=== PATIENT | female | born 1960 | race African-American/Black ===

== ENCOUNTER 2017-01-30 17:34 | Emergency (ER) | payer OTHER ==
[~2017-01-30] VITALS: Ht 149.9 cm; Wt 65.8 kg
[~2017-01-30 17:34] MED LIST: ALBUTEROL SULF8.5 GM INH; ATORVASTATIN CA10 MG ORAL; AZITHROMYCIN250 MG ORAL; BACTRIM-DS1 EA ORAL; DIFLUCAN100 MG ORAL; HYDROCHLOROTHIA25 MG ORAL; IBUPROFEN600 MG ORAL; KEFLEX500 MG ORAL; METFORMIN HCL1000 M1 ORAL; NORCO 5-325 TA1 EACH ORAL; PHENAZOPYRIDIN200 MG ORAL; ROBAXIN-750750 MG PO; ROBITUSSIN DM5 ML GT; ZANTAC150 MG ORAL; ZOFRAN ODT4 MG ORAL
[2017-01-30 18:25] VITALS: BP 150/93
--- NOTE | 2017-01-30 18:36 | Emergency Room Report ---
History of Present Illness General Chief Complaint: Medication Refill Source: Patient Present Illness HPI 56 YO female presents to the emergency department requesting medication refill for her losartan for hypotension or and metformin for diabetes. Patient states her next appointment with her physician is not until the 11th of next month and she is now out of her medications. Patient denies headache, nausea, vomiting, abdominal pain. Patient states she does not need medical workup he simply wants a refill of her prescriptions. Denies CP, Palpitations, LOC, AMS, dizziness, Changes in Vision, Sensation, paresthesias, or a sudden severe headache. Allergies: Coded Allergies: IBUPROFEN (Unverified Adverse Reaction, Mild, makes me feel jumpy, 04/14/14) Patient History Past Medical History: see triage record Past Surgical History: none Pertinent Family History: none Last Menstrual Period: N/A Now: No Reviewed Nursing Documentation: PMH: Agreed, PSxH: Agreed Nursing Documentation-PMH Hx Cardiac Problems: No - hyperlipid Hx Hypertension: Yes Hx Pacemaker: No Hx Asthma: No Hx COPD: No Hx Diabetes: Yes Hx Cancer: No Hx Gastrointestinal Problems: No Hx Dialysis: No Hx Neurological Problems: No Hx Cerebrovascular Accident: No Hx Seizures: No Review of Systems All Other Systems: negative except mentioned in HPI Physical Exam Vital Signs Date Time Temp Pulse Resp B/P Pulse Ox O2 Delivery O2 Flow Rate FiO2 01/30/17 17:56 98.6 86 18 150/93 96 Room Air Sp02 EP Interpretation: reviewed, abnormal - Bp elevated General Appearance: no apparent distress, alert, GCS 15, non-toxic Head: normocephalic, atraumatic Eyes: bilateral eye PERRL, bilateral eye normal inspection ENT: hearing grossly normal, normal pharynx, no angioedema, normal voice Neck: full range of motion Respiratory: lungs clear, normal breath sounds, speaking full sentences Cardiovascular #1: regular rate, rhythm, no edema Musculoskeletal: gait/station normal, normal range of motion Neurologic: alert, oriented x3, responsive, motor strength/tone normal, cerebellar normal, normal gait, speech normal Psychiatric: judgement/insight normal, memory normal, mood/affect normal Skin: normal color, no rash, warm/dry, well hydrated Medical Decision Making PA Attestation Dr. Altman is my supervising Physician whom patient management has been discussed with. Diagnostic Impression: Primary Impression: Encounter for medication refill ER Course 56 YO female presents to the emergency department requesting medication refill for her losartan for hypotension or and metformin for diabetes. Patient states her next appointment with her physician is not until the 11th of next month and she is now out of her medications. Patient denies headache, nausea, vomiting, abdominal pain. Patient states she does not need medical workup he simply wants a refill of her prescriptions. Pt. takes Losartan 100mg daily and Metformin 1000mg Daily. Ddx considered but are not limited to: drug seeking, OD, DKA, HONK, HTN urgency Vital signs: are WNL, pt. is afebrile H&PE are most consistent with need for medication refill. ORDERS: none required at this time, the diagnosis is clinical ED INTERVENTIONS: None required at this time. DISCHARGE: At this time pt. is stable for d/c to home. Will provide printed patient care instructions, and any necessary prescriptions. Care plan and follow up instructions have been discussed with the patient prior to discharge. Last Vital Signs Date Time Temp Pulse Resp B/P Pulse Ox O2 Delivery O2 Flow Rate FiO2 01/30/17 18:25 98.6 18 150/93 96 Room Air 01/30/17 17:56 86 Disposition: HOME, SELF-CARE Condition: Stable Scripts Losartan Potassium (LOSARTAN POTASSIUM) 100 Mg Tablet 100 MG ORAL DAILY for 30 Days, #30 TAB Prov: Janina Sevilla 01/30/17 Metformin Hcl* (METFORMIN HCL*) 1,000 Mg Tablet 1000 MG ORAL DAILY for 30 Days, #30 TAB Prov: Janina Sevilla 01/30/17 Patient Instructions: Medicine Refill at the Emergency Department Additional Instructions: Take medications as directed. Follow up with PCP in 3-5 days Return sooner to ED if new symptoms occur, or current symptoms become worse. - Please note that this Emergency Department Report was dictated using [employer] teller technology software, occasionally this can lead to erroneous entry secondary to interpretation by the dictation equipment. Janina Sevilla Jan 30, 2017 18:36
[2017-01-30] MEDS ORDERED: ATORVASTATIN CA10 MG ORAL (18:38)
[2017-01-30] MEDS ORDERED: HYDROCHLOROTHIA25 MG ORAL (18:38)
[2017-01-30] MEDS ORDERED: METFORMIN HCL1000 M1 ORAL (18:38)
[2017-01-30 18:41] VITALS: BP 150/93
[2017-01-30] MEDS ORDERED: LOSARTAN POTAS100 MG ORAL ×2 (18:45→18:46)
[2017-01-30] MEDS ORDERED: METFORMIN HCL500 M5 PO (18:45)
[2017-01-30] MEDS ORDERED: METFORMIN HCL5000 GM MC (18:45)
== END 2017-01-30 18:45 | disposition home or self-care (01) ==
LOC: EMR 18:22
DX: Z76.0 Encounter for issue of repeat prescription (principal); Z88.6 Allergy status to analgesic agent; I10 Essential (primary) hypertension; E11.9 Type 2 diabetes mellitus without complications
CPT/HCPCS: 99284

== ENCOUNTER 2017-04-13 09:46 | Emergency (ER) | payer OTHER ==
[~2017-04-13 09:46] MED LIST changes: +LOSARTAN POTAS100 MG ORAL; +METFORMIN HCL500 M5 PO; +METFORMIN HCL5000 GM MC
--- NOTE | 2017-04-13 21:47 | Emergency Room Report ---
History of Present Illness General Chief Complaint: To Be Triaged Present Illness HPI apparently here for medication refill. Not in W/R when called. Allergies: Coded Allergies: IBUPROFEN (Unverified Adverse Reaction, Mild, makes me feel jumpy, 04/14/14) Patient History Past Medical History: see triage record Nursing Documentation-PMH Hx Cardiac Problems: No - hyperlipid Hx Hypertension: Yes Hx Pacemaker: No Hx Asthma: No Hx COPD: No Hx Diabetes: Yes Hx Cancer: No Hx Gastrointestinal Problems: No Hx Dialysis: No Hx Neurological Problems: No Hx Cerebrovascular Accident: No Hx Seizures: No Medical Decision Making Diagnostic Impression: Primary Impression: LWBSMD ER Course Patient left before triage. Disposition: LEFT W/OUT BEING SEEN Condition: Unknown Referrals: [facility] (PCP) Camilo Rogers M.D. Apr 13, 2017 21:47
== END 2017-04-13 11:00 | disposition left against medical advice (07) ==
LOC: EMR 11:00
DX: Z76.0 Encounter for issue of repeat prescription (principal); Z53.21 Procedure and treatment not carried out due to patient leaving prior to being seen by health care provider; I10 Essential (primary) hypertension; E11.9 Type 2 diabetes mellitus without complications; Z88.6 Allergy status to analgesic agent

== ENCOUNTER 2017-04-15 18:03 | Emergency (ER) | payer OTHER ==
[~2017-04-15] VITALS: Ht 149.9 cm; Wt 65.8 kg
[2017-04-15] MEDS ORDERED: JANUMET 50-1,01 EACH ORAL ×2 (18:14→20:37)
--- NOTE | 2017-04-15 18:56 | Emergency Room Report ---
History of Present Illness General Chief Complaint: Medication Refill Source: Patient Present Illness HPI 57-year-old female, history of diabetes and hypertension, presenting with urinary frequency, dehydration, and medication refill. Patient has diabetes, states that she ran out of her Janumet and Losartan, however does use insulin 15 units at bedtime, and use her insulin last night. Patient states that she has been having increased urination and thirst the entire day. Denies any fever chills chest pain shortness of breath nausea vomiting or abdominal pain Allergies: Coded Allergies: IBUPROFEN (Unverified Adverse Reaction, Mild, makes me feel jumpy, 04/14/14) Patient History Past Medical History: see triage record Past Surgical History: none Pertinent Family History: none Reviewed Nursing Documentation: PMH: Agreed, PSxH: Agreed Nursing Documentation-PMH Hx Cardiac Problems: No - hyperlipid Hx Hypertension: Yes Hx Pacemaker: No Hx Asthma: No Hx COPD: No Hx Diabetes: Yes Hx Cancer: No Hx Gastrointestinal Problems: No Hx Dialysis: No Hx Neurological Problems: No Hx Cerebrovascular Accident: No Hx Seizures: No Review of Systems All Other Systems: negative except mentioned in HPI Physical Exam Vital Signs Date Time Temp Pulse Resp B/P (MAP) Pulse Ox O2 Delivery O2 Flow Rate FiO2 04/15/17 18:08 98.1 98 16 145/89 97 Room Air Sp02 EP Interpretation: reviewed, normal General Appearance: normal inspection, well appearing, no apparent distress, alert, GCS 15, non-toxic Head: normocephalic, atraumatic Eyes: bilateral eye normal inspection, bilateral eye PERRL, bilateral eye EOMI ENT: normal ENT inspection, normal pharynx, normal voice, dry mucus membranes Neck: normal inspection, full range of motion, supple Respiratory: normal inspection, lungs clear, normal breath sounds, no respiratory distress, no retraction, no wheezing, speaking full sentences, chest symmetrical Cardiovascular #1: normal inspection, regular rate, rhythm, no edema, normal capillary refill Cardiovascular #2: 2+ radial (R), 2+ radial (L) Gastrointestinal: normal inspection, non tender, soft, non-distended, no guarding Musculoskeletal: normal inspection, back normal, normal range of motion, non- tender Neurologic: normal inspection, alert, oriented x3, responsive, motor strength/ tone normal, sensory intact, normal gait, speech normal Psychiatric: normal inspection, judgement/insight normal, memory normal Skin: normal inspection, normal color, no rash, warm/dry, well hydrated, normal turgor Medical Decision Making Diagnostic Impression: Primary Impression: Hyperglycemia Additional Impression: Encounter for medication refill ER Course 57 yo female with polyuria, polydipsia, needs medication refill DDX: hyperglycemia r/o DKA dehydration/electrolyte disturbance Plan: Obtain labs, ua, EKG, CXR, IVF ER course: Patient has been monitored during ED stay, HD stable labs reveal only hyperglycemia received fluids last bgm 331 she will take her insulin when she gets home Disposition: Pt stable for DC patient was given 1 week supply of her losartan and janumet, instructed to followup with her primary care Dr. within one week Please note that this Emergency Department Report was dictated using [employer] spooler technology software, occasionally this can lead to erroneous entry secondary to interpretation by the dictation equipment. Laboratory Tests Test 04/15/17 18:46 04/15/17 18:50 Arterial Blood pH 7.396 (7.350-7.450) Arterial Blood Partial Pressure CO2 34.8 mmHg (35.0-45.0) L Arterial Blood Partial Pressure O2 90.8 mmHg (75.0-100.0) Arterial Blood HCO3 20.9 mmol/L (22.0-26.0) L Arterial Blood Oxygen Saturation 97.1 % (92.0-98.0) Arterial Blood Base Excess -3.2 Jose Miguel Test Positive White Blood Count 10.2 K/UL (4.8-10.8) Red Blood Count 4.91 M/UL (4.20-5.40) Hemoglobin 14.7 G/DL (12.0-16.0) Hematocrit 45.4 % (37.0-47.0) Mean Corpuscular Volume 92 FL (80-99) Mean Corpuscular Hemoglobin 30.0 PG (27.0-31.0) Mean Corpuscular Hemoglobin Concent 32.4 G/DL (32.0-36.0) Red Cell Distribution Width 12.6 % (11.6-14.8) Platelet Count 243 K/UL (150-450) Mean Platelet Volume 9.1 FL (6.5-10.1) Neutrophils (%) (Auto) 63.2 % (45.0-75.0) Lymphocytes (%) (Auto) 28.0 % (20.0-45.0) Monocytes (%) (Auto) 5.8 % (1.0-10.0) Eosinophils (%) (Auto) 1.6 % (0.0-3.0) Basophils (%) (Auto) 1.4 % (0.0-2.0) Urine Color Pale yellow Urine Appearance Slightly cloudy Urine pH 6.5 (4.5-8.0) Urine Specific [place] 1.010 (1.005-1.035) Urine Protein 1+ (NEGATIVE) H Urine Glucose (UA) 4+ (NEGATIVE) H Urine Ketones Negative (NEGATIVE) Urine Occult Blood Negative (NEGATIVE) Urine Nitrite Negative (NEGATIVE) Urine Bilirubin Negative (NEGATIVE) Urine Urobilinogen Normal MG/DL (0.0-1.0) Urine Leukocyte Esterase Negative (NEGATIVE) Urine RBC 0-2 /HPF (0 - 2) Urine WBC 2-4 /HPF (0 - 2) Urine Squamous Epithelial Cells Moderate /LPF (NONE/OCC) H Urine Bacteria Few /HPF (NONE) Sodium Level 139 mEQ/L (135-145) Potassium Level 4.2 mEQ/L (3.4-4.9) Chloride Level 98 mEQ/L (98-107) Carbon Dioxide Level 27 mEQ/L (20-30) Anion Gap 14 (5-15) Blood Urea Nitrogen 12 mg/dL (7-23) Creatinine 1.2 mg/dL (0.5-0.9) H Estimate Glomerular Filtration Rate 55.8 mL/min (>60) Glucose Level 539 mg/dL (74-106) *H Calcium Level 10.4 mg/dL (8.6-10.2) H Magnesium Level 1.9 mg/dL (1.7-2.5) Total Bilirubin 0.4 mg/dL (0.0-1.2) Aspartate Amino Transferase (AST) 73 U/L (5-40) H Alanine Aminotransferase (ALT) 92 U/L (3-33) H Alkaline Phosphatase 173 U/L (35-104) H Total Protein 9.4 g/dL (6.6-8.7) H Albumin 4.8 g/dL (3.5-5.2) Globulin 4.6 g/dL Albumin/Globulin Ratio 1.0 (1.0-2.7) Acetone Level Negative (NEGATIVE) EKG Diagnostic Results Rate: normal Rhythm: NSR ST Segments: no acute changes Rhythm Strip Diag. Results EP Interpretation: yes Rate: 90 Rhythm: NSR, no PVC's, no ectopy Chest X-Ray Diagnostic Results Chest X-Ray Diagnostic Results : # of Views/Limited/Complete: 1 View Indication: Other EP Interpretation: Yes Interpretation: no consolidation, no effusion, no pneumothorax, no acute cardiopulmonary disease Impression: No acute disease Interpreting ER Provider: Electronically signed by Clyde Shin MD Last Vital Signs Date Time Temp Pulse Resp B/P (MAP) Pulse Ox O2 Delivery O2 Flow Rate FiO2 04/15/17 18:08 98.1 98 16 145/89 97 Room Air Disposition: HOME, SELF-CARE Condition: Improved Scripts Sitagliptin Phos/Metformin Hcl (JANUMET 50-1,000 MG TABLET) 1 Each Tablet 1 TAB ORAL TWICE A DAY for 7 Days, #14 TAB 0 Refills Prov: Clyde Shin M.D. 04/15/17 Losartan Potassium (LOSARTAN POTASSIUM) 100 Mg Tablet 100 MG ORAL DAILY for 7 Days, #7 TAB 0 Refills Prov: Clyde Shin M.D. 04/15/17 Referrals: [facility] (PCP) Additional Instructions: Please follow up with your primary care doctor within 3 days. . Please take your prescription medication as directed. Please come back to the emergency room if you are having worsening pain, headache, chest pain, shortness of breath, or nausea or vomiting Please followup with your primary care doctor for medication refill request Clyde Shin M.D. Apr 15, 2017 18:56
[2017-04-15 19:00] VITALS: BP 180/95
[2017-04-15 19:07] LABS: BASOPHILS % (AUTO) 1.4 % (0.0-2.0); EOSINOPHILS % (AUTO) 1.6 % (0.0-3.0); MEAN CORPUSCULAR HGB CONC 32.4 G/DL (32.0-36.0); MEAN CORPUSCULAR VOLUME 92 FL (80-99); MEAN PLATELET VOLUME 9.1 FL (6.5-10.1); MONOCYTES % (AUTO) 5.8 % (1.0-10.0); NEUTROPHILS % (AUTO) 63.2 % (45.0-75.0); PLATELET COUNT 243 K/UL (150-450); RED BLOOD COUNT 4.91 M/UL (4.20-5.40); RED CELL DISTRIBUTION WIDTH 12.6 % (11.6-14.8); WHITE BLOOD COUNT 10.2 K/UL (4.8-10.8)
[2017-04-15 19:12] LABS: ABG BASE EXCESS -3.2; ABG PCO2 34.8 mmHg (35.0-45.0)
[2017-04-15 19:13] LABS: ABG ALLEN TEST POSITIVE
[2017-04-15 19:31] LABS: ALANINE AMINOTRANSFERASE 92 U/L (3-33); ANION GAP 14 (5-15); ASPARTATE AMINO TRANSFERASE 73 U/L (5-40); CALCIUM 10.4 mg/dL (8.6-10.2); CARBON DIOXIDE 27 mEQ/L (20-30); CHLORIDE 98 mEQ/L (98-107); CREATININE 1.2 mg/dL (0.5-0.9); GLOMERULAR FILTRATION RATE 55.8 mL/min (>60); HEMOLYSIS 3; MAGNESIUM 1.9 mg/dL (1.7-2.5); POTASSIUM 4.2 mEQ/L (3.4-4.9); SODIUM 139 mEQ/L (135-145); TOTAL PROTEIN 9.4 g/dL (6.6-8.7)
[2017-04-15 19:52] LABS: APPEARANCE,URINE SLIGHTLY CLOUDY; KETONES,URINE NEGATIVE (NEGATIVE); LEUKOCYTE ESTERASE ,URINE NEGATIVE (NEGATIVE); NITRITE,URINE NEGATIVE (NEGATIVE); PH,URINE 6.5 (4.5-8.0); PROTEIN,URINE 1+ (NEGATIVE); UROBILINOGEN,URINE NORMAL MG/DL (0.0-1.0)
[2017-04-15 19:57] LABS: BACTERIA,URINE FEW /HPF; RBC,URINE 0-2 /HPF (0 - 2); SQUAMOUS EPITHELIAL CELL,UR MODERATE /LPF (NONE/OCC)
[2017-04-15] MEDS ORDERED: LOSARTAN POTAS100 MG ORAL (20:37)
[2017-04-15 20:54] VITALS: BP 135/80
--- NOTE | 2017-04-16 09:46 | Diagnostic Imaging Report ---
Indication: Cough Technique: One view of the chest Comparison: none Findings: Lungs and pleural spaces are clear. Heart size is normal. Impression: No acute process
--- NOTE | 2017-04-18 16:36 | Cardiology Report ---
APPROVED REPORT EKG Measurement Heart [id number] Normal sinus rhythm Possible Left atrial enlargement Borderline ECG
== END 2017-04-15 20:54 | disposition home or self-care (01) ==
LOC: EMR 18:47
DX: E11.65 Type 2 diabetes mellitus with hyperglycemia (principal); I10 Essential (primary) hypertension; E78.5 Hyperlipidemia, unspecified; Z88.6 Allergy status to analgesic agent
CPT/HCPCS: 36415; 36600; 71010; 80053; 81003; 82009; 82803; 82962; 83735; 85025; 93005; 99284

== ENCOUNTER 2017-11-22 20:59 | Emergency (ER) | payer OTHER ==
[~2017-11-22] VITALS: Ht 149.9 cm; Wt 65.8 kg
[~2017-11-22 20:59] MED LIST changes: +JANUMET 50-1,01 EACH ORAL
[2017-11-22 21:10] VITALS: BP 152/91
[2017-11-22] MEDS ORDERED: HUMALOG 75/255 UNIT1 SUBQ (21:10)
[2017-11-22] MEDS ORDERED: TYLENOL EXTRA500 MG ORAL (21:57)
[2017-11-22] MEDS ORDERED: AMOXICILLIN500 MG ORAL (21:57)
[2017-11-22 22:04] VITALS: BP 152/91
--- NOTE | 2017-11-23 01:19 | Emergency Room Report ---
History of Present Illness General Chief Complaint: Animal Bite Source: Patient Present Illness HPI 57-year-old female presents ED complaining of neck pain. Noticed swelling to her left neck this morning. Pain is dull, 8 out of 10, nonradiating. Denies fevers or chills. Denies sore throat or cough. Denies ear ache. No other aggravating relieving factors. Denies any other associated symptoms Allergies: Coded Allergies: IBUPROFEN (Unverified Adverse Reaction, Mild, makes me feel jumpy, 04/14/14) Patient History Past Medical History: none Past Surgical History: none Pertinent Family History: none Social History: Denies: smoking, alcohol use, drug use Now: No Immunizations: UTD Reviewed Nursing Documentation: PMH: Agreed; PSxH: Agreed Nursing Documentation-PMH Hx Cardiac Problems: No - hyperlipid Hx Hypertension: Yes Hx Pacemaker: No Hx Asthma: No Hx COPD: No Hx Diabetes: Yes Hx Cancer: No Hx Gastrointestinal Problems: No Hx Dialysis: No Hx Neurological Problems: No Hx Cerebrovascular Accident: No Hx Seizures: No Review of Systems All Other Systems: negative except mentioned in HPI Physical Exam Vital Signs Date Time Temp Pulse Resp B/P (MAP) Pulse Ox O2 Delivery O2 Flow Rate FiO2 11/22/17 21:05 97.8 91 14 152/91 95 Room Air 97.9 Sp02 EP Interpretation: reviewed, normal General Appearance: no apparent distress, alert, GCS 15, non-toxic Head: normocephalic Eyes: bilateral eye normal inspection, bilateral eye PERRL ENT: hearing grossly normal, normal pharynx, no angioedema, normal voice Neck: full range of motion, supple/symm/no masses Respiratory: chest non-tender, lungs clear, normal breath sounds, speaking full sentences Cardiovascular #1: regular rate, rhythm, no edema Gastrointestinal: normal inspection Rectal: deferred Genitourinary: no CVA tenderness Musculoskeletal: normal inspection Neurologic: alert, oriented x3, responsive, motor strength/tone normal, sensory intact, speech normal Psychiatric: judgement/insight normal, memory normal, mood/affect normal, no suicidal/homicidal ideation Skin: normal color, no rash, warm/dry, well hydrated Lymphatic: adenopathy - L cervical Medical Decision Making Diagnostic Impression: Primary Impression: Lymphadenopathy ER Course Hospital Course 57-year-old female presents ED for left sided neck swelling Differential diagnoses include: cellulitis, abscess, dermatitis Clinical course Patient placed on stretcher. After initial history, physical exam reveals a middle aged female in no acute distress. Bilateral TM unremarkable. No pharyngeal erythema. No tonsillar exudates. there is cervical L sided lymphadenopathy. lungs clear. discussed findings with patient. Unlikely cellulitis or abscess. More likely a reactive lymphadenopathy. We'll prescribe antibiotics. Recommend close follow-up with PMD Diagnosis - lymphadenopathy Stable and discharged home with Rx amoxicillin, tylenol. Instructed to followup with PMD. Return to ED if symptoms recur or worsen Last Vital Signs Date Time Temp Pulse Resp B/P (MAP) Pulse Ox O2 Delivery O2 Flow Rate FiO2 11/22/17 21:10 97.9 94 14 152/91 95 Room Air 97.9 Status: improved Disposition: HOME, SELF-CARE Condition: Stable Scripts Acetaminophen* (TYLENOL EXTRA STRENGTH*) 500 Mg Tablet 500 MG ORAL Q8H PRN for Prn Headache/Temp > 101, #30 TAB 0 Refills Prov: Kingston Renee MD 11/22/17 Amoxicillin* (AMOXIL*) 500 Mg Capsule 500 MG ORAL THREE TIMES A DAY, #21 CAP Prov: Kingston Renee MD 11/22/17 Referrals: [facility] (PCP) Patient Instructions: Lymphadenopathy Kingston Renee MD Nov 23, 2017 01:19
== END 2017-11-22 22:04 | disposition home or self-care (01) ==
LOC: EMR 21:32
DX: R59.0 Localized enlarged lymph nodes (principal); E11.9 Type 2 diabetes mellitus without complications; I10 Essential (primary) hypertension; Z88.6 Allergy status to analgesic agent
CPT/HCPCS: 99284

== ENCOUNTER 2018-04-10 16:45 | Emergency (ER) | payer OTHER ==
[~2018-04-10] VITALS: Ht 149.9 cm; Wt 64.0 kg
[~2018-04-10 16:45] MED LIST changes: +AMOXICILLIN500 MG ORAL; +HUMALOG 75/255 UNIT1 SUBQ; +TYLENOL EXTRA500 MG ORAL
[2018-04-10] MEDS ORDERED: Levemir Flexpen SUBQ STA (17:09)
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
[2018-04-10] MEDS ORDERED: Insulin Human Regular 100units/ml 3ml IV ONE ×2 (17:30→20:00)
[2018-04-10 18:09] LABS: EOSINOPHILS % (AUTO) 1.5 % (0.0-3.0); HEMATOCRIT 45.9 % (37.0-47.0); HEMOGLOBIN 15.2 G/DL (12.0-16.0); LYMPHOCYTES % (AUTO) 26.1 % (20.0-45.0); MEAN CORPUSCULAR VOLUME 90 FL (80-99); MONOCYTES % (AUTO) 6.4 % (1.0-10.0); NEUTROPHILS % (AUTO) 64.1 % (45.0-75.0); PLATELET COUNT 226 K/UL (150-450); RED BLOOD COUNT 5.12 M/UL (4.20-5.40); RED CELL DISTRIBUTION WIDTH 12.2 % (11.6-14.8); WHITE BLOOD COUNT 10.5 K/UL (4.8-10.8)
[2018-04-10 18:13] LABS: INR 1.1 (0.9-1.1)
[2018-04-10 18:26] LABS: ALANINE AMINOTRANSFERASE 63 U/L (12-78); ALBUMIN 3.7 G/DL (3.4-5.0); ALBUMIN/GLOBULIN RATIO 0.6 (1.0-2.7); ALKALINE PHOSPHATASE 161 U/L (46-116); ANION GAP 9 mmol/L (5-15); ASPARTATE AMINO TRANSFERASE 44 U/L (15-37); BILIRUBIN,TOTAL 0.6 MG/DL (0.2-1.0); BLOOD UREA NITROGEN 19 mg/dL (7-18); CALCIUM 10.1 MG/DL (8.5-10.1); CARBON DIOXIDE 25 MMOL/L (21-32); CHLORIDE 92 MMOL/L (98-107); CREATINE KINASE 126 U/L (26-308); CREATININE 1.1 MG/DL (0.55-1.30); SODIUM 126 MMOL/L (136-145)
[2018-04-10 19:25] VITALS: BP 115/70
[2018-04-10] MEDS ORDERED: JANUMET 50-1,01 EACH ORAL (21:21)
[2018-04-10] MEDS ORDERED: LANTUS SOL100 UNIT/1 SUBQ (21:21)
[2018-04-10] MEDS ORDERED: LOSARTAN POTAS100 MG ORAL (21:21)
[2018-04-10] MEDS ORDERED: HUMALOG100 UNIT/1 SUBQ (21:21)
[2018-04-10 21:25] VITALS: BP 109/76
[2018-04-10 21:50] VITALS: BP 109/76
--- NOTE | 2018-04-11 08:21 | Diagnostic Imaging Report ---
Indication: Chest pain Technique: One view of the chest Comparison: 04/15/2017 Findings: Inspiration is suboptimal. There is some crowding of the bronchovascular markings in the infrahilar regions bilaterally. Lungs and pleural spaces are otherwise clear. The heart size is grossly normal Impression: No acute process
--- NOTE | 2018-04-11 23:38 | Cardiology Report ---
APPROVED REPORT EKG Measurement Heart [id number] Normal sinus rhythm Possible Left atrial enlargement Borderline ECG
== END 2018-04-10 21:50 | disposition home or self-care (01) ==
LOC: EMR 17:32
DX: E11.65 Type 2 diabetes mellitus with hyperglycemia (principal); Z91.14 Patient's other noncompliance with medication regimen; I10 Essential (primary) hypertension; E78.5 Hyperlipidemia, unspecified; Z79.4 Long term (current) use of insulin
CPT/HCPCS: 36415; 71045; 80053; 80307; 82550; 83880; 84484; 85025; 85610; 85730; 93005; 96361; 96374; 99284; J1815; S5561

== ENCOUNTER 2018-05-23 17:33 | Emergency (ER) | payer OTHER ==
[~2018-05-23] VITALS: Ht 149.9 cm; Wt 65.8 kg
[~2018-05-23 17:33] MED LIST changes: +HUMALOG100 UNIT/1 SUBQ; +LANTUS SOL100 UNIT/1 SUBQ
[2018-05-23 18:08] VITALS: BP 100/63
[2018-05-23] MEDS ORDERED: Fluconazole 100mg tab ORAL ONE (18:30)
[2018-05-23] MEDS ORDERED: Dicyclomine HCl 10mg/5ml oral soln ORAL ONE (18:30)
[2018-05-23 18:33] LABS: APPEARANCE,URINE SLIGHTLY CLOUDY; BILIRUBIN, URINE NEGATIVE (NEGATIVE); COLOR,URINE PALE YELLOW; GLUCOSE, URINE (UA) 4+ (NEGATIVE); KETONES,URINE NEGATIVE (NEGATIVE); LEUKOCYTE ESTERASE ,URINE 1+ (NEGATIVE); NITRITE,URINE NEGATIVE (NEGATIVE); PH,URINE 5 (4.5-8.0); PROTEIN,URINE 1+ (NEGATIVE); UROBILINOGEN,URINE NORMAL MG/DL (0.0-1.0)
[2018-05-23 18:35] LABS: BASOPHILS % (AUTO) 1.2 % (0.0-2.0); EOSINOPHILS % (AUTO) 1.6 % (0.0-3.0); HEMATOCRIT 46.7 % (37.0-47.0); HEMOGLOBIN 15.4 G/DL (12.0-16.0); LYMPHOCYTES % (AUTO) 25.5 % (20.0-45.0); MEAN CORPUSCULAR VOLUME 93 FL (80-99); MONOCYTES % (AUTO) 4.9 % (1.0-10.0); NEUTROPHILS % (AUTO) 66.7 % (45.0-75.0); PLATELET COUNT 238 K/UL (150-450); RED BLOOD COUNT 5.05 M/UL (4.20-5.40); RED CELL DISTRIBUTION WIDTH 12.1 % (11.6-14.8); WHITE BLOOD COUNT 9.6 K/UL (4.8-10.8)
--- NOTE | 2018-05-23 18:42 | Emergency Room Report ---
History of Present Illness General Chief Complaint: Flu Like Symptoms Source: Patient Present Illness HPI Patient is a 58-year-old female who presented after increased abdominal discomfort and the generalized weakness. Patient reports having prior history of diabetes. She states she had recently been on antibiotics for dental infection. She reports having the lower abdominal pain. She denies any diarrhea. She denies any black or bloody stools. The patient was having increased dry mouth.The patient reports taking medications for blood pressure. Allergies: Coded Allergies: IBUPROFEN (Unverified Adverse Reaction, Mild, makes me feel jumpy, 04/14/14) Patient History Past Medical History: see triage record, DM Reviewed Nursing Documentation: PMH: Agreed; PSxH: Agreed Nursing Documentation-PMH Past Medical History: No History, Except For Hx Cardiac Problems: No - hyperlipid Hx Hypertension: Yes Hx Pacemaker: No Hx Asthma: No Hx COPD: No Hx Diabetes: Yes Hx Cancer: No Hx Gastrointestinal Problems: No Hx Dialysis: No Hx Neurological Problems: No Hx Cerebrovascular Accident: No Hx Seizures: No Review of Systems All Other Systems: negative except mentioned in HPI Physical Exam Vital Signs Date Time Temp Pulse Resp B/P (MAP) Pulse Ox O2 Delivery O2 Flow Rate FiO2 05/23/18 17:50 94.0 97 16 116/77 98 Room Air 93.9 Sp02 EP Interpretation: reviewed, normal General Appearance: normal inspection, well appearing, no apparent distress, alert, GCS 15, non-toxic Head: atraumatic ENT: normal ENT inspection, hearing grossly normal, normal voice Neck: normal inspection, full range of motion, supple, no bony tend Respiratory: normal inspection, lungs clear, normal breath sounds, no respiratory distress, no retraction, no wheezing Cardiovascular #1: regular rate, rhythm, no edema Gastrointestinal: normal inspection, normal bowel sounds, non tender, soft, no guarding, no hernia Genitourinary: no CVA tenderness Musculoskeletal: normal inspection, back normal, normal range of motion Neurologic: normal inspection, alert, responsive, speech normal Psychiatric: normal inspection, judgement/insight normal, mood/affect normal Skin: normal inspection, normal color, no rash Medical Decision Making Diagnostic Impression: Primary Impression: Uncontrolled diabetes mellitus Additional Impression: UTI (urinary tract infection) ER Course Patient presented for generalized weakness. Differential diagnosis included was not limited to anemia, urinary tract infection, electrolyte abnormality, hypothyroidism, myocardial infarction, myasthenia gravis, dehydration, among others. Because of complexity of patient's case laboratory testing and imaging studies were ordered. The laboratory testing was notable for markedly elevated blood sugar which showed is critically high patient was started on IV fluids. She was given IV insulin.The patient was noted to have the elevated blood sugar on laboratory testing. The patient was discussed with Dr. Araujo the who agreed to accept the patient as transfer. Labs Test 05/23/18 18:20 White Blood Count 9.6 K/UL (4.8-10.8) Red Blood Count 5.05 M/UL (4.20-5.40) Hemoglobin 15.4 G/DL (12.0-16.0) Hematocrit 46.7 % (37.0-47.0) Mean Corpuscular Volume 93 FL (80-99) Mean Corpuscular Hemoglobin 30.6 PG (27.0-31.0) Mean Corpuscular Hemoglobin Concent 33.1 G/DL (32.0-36.0) Red Cell Distribution Width 12.1 % (11.6-14.8) Platelet Count 238 K/UL (150-450) Mean Platelet Volume 9.8 FL (6.5-10.1) Neutrophils (%) (Auto) 66.7 % (45.0-75.0) Lymphocytes (%) (Auto) 25.5 % (20.0-45.0) Monocytes (%) (Auto) 4.9 % (1.0-10.0) Eosinophils (%) (Auto) 1.6 % (0.0-3.0) Basophils (%) (Auto) 1.2 % (0.0-2.0) Urine Color Pale yellow Urine Appearance Slightly cloudy Urine pH 5 (4.5-8.0) Urine Specific [place] 1.010 (1.005-1.035) Urine Protein 1+ (NEGATIVE) Urine Glucose (UA) 4+ (NEGATIVE) Urine Ketones Negative (NEGATIVE) Urine Blood Negative (NEGATIVE) Urine Nitrite Negative (NEGATIVE) Urine Bilirubin Negative (NEGATIVE) Urine Urobilinogen Normal MG/DL (0.0-1.0) Urine Leukocyte Esterase 1+ (NEGATIVE) Urine RBC 0-2 /HPF (0 - 2) Urine WBC 5-10 /HPF (0 - 2) Urine Squamous Epithelial Cells Few /LPF (NONE/OCC) Urine Bacteria Few /HPF (NONE) Sodium Level 123 MMOL/L (136-145) Potassium Level 4.2 MMOL/L (3.5-5.1) Chloride Level 86 MMOL/L (98-107) Carbon Dioxide Level 25 MMOL/L (21-32) Anion Gap 12 mmol/L (5-15) Blood Urea Nitrogen 23 mg/dL (7-18) Creatinine 1.6 MG/DL (0.55-1.30) Estimat Glomerular Filtration Rate 39.9 mL/min (>60) Glucose Level 762 MG/DL (74-106) Calcium Level 9.9 MG/DL (8.5-10.1) Total Bilirubin 0.5 MG/DL (0.2-1.0) Aspartate Amino Transf (AST/SGOT) 47 U/L (15-37) Alanine Aminotransferase (ALT/SGPT) 75 U/L (12-78) Alkaline Phosphatase 216 U/L (46-116) Troponin I 0.000 ng/mL (0.000-0.056) Total Protein 9.8 G/DL (6.4-8.2) Albumin 3.9 G/DL (3.4-5.0) Globulin 5.9 g/dL Albumin/Globulin Ratio 0.7 (1.0-2.7) Thyroid Stimulating Hormone (TSH) 1.539 uiU/mL (0.358-3.740) Acetone Level Negative (NEGATIVE) EKG Diagnostic Results Rate: normal Rhythm: NSR ST Segments: no acute changes Last Vital Signs Date Time Temp Pulse Resp B/P (MAP) Pulse Ox O2 Delivery O2 Flow Rate FiO2 05/23/18 18:08 Room Air 05/23/18 18:08 93.9 80 16 100/63 98 93.9 Status: unchanged Disposition: XFER SHT-TRM HOSP Condition: Stable Referrals: [facility],REFERR[facility] (PCP) Osman Mahoney MD May 23, 2018 18:42
[2018-05-23 18:50] LABS: ANION GAP 12 mmol/L (5-15); BLOOD UREA NITROGEN 23 mg/dL (7-18); CALCIUM 9.9 MG/DL (8.5-10.1); CARBON DIOXIDE 25 MMOL/L (21-32); CHLORIDE 86 MMOL/L (98-107); CREATININE 1.6 MG/DL (0.55-1.30); POTASSIUM 4.2 MMOL/L (3.5-5.1); SODIUM 123 MMOL/L (136-145)
[2018-05-23 18:57] LABS: ALANINE AMINOTRANSFERASE 75 U/L (12-78); ALBUMIN 3.9 G/DL (3.4-5.0); ALBUMIN/GLOBULIN RATIO 0.7 (1.0-2.7); ALKALINE PHOSPHATASE 216 U/L (46-116); ASPARTATE AMINO TRANSFERASE 47 U/L (15-37); BILIRUBIN,TOTAL 0.5 MG/DL (0.2-1.0)
[2018-05-23] MEDS ORDERED: cefTRIAXone 1 GM in NS 55 ML IVPB ONE (19:00)
[2018-05-23] MEDS ORDERED: Insulin Human Regular 100units/ml 3ml IV ONE (19:45)
[2018-05-23 20:07] VITALS: BP 122/74
[2018-05-23] MEDS ORDERED: Sodium Chloride 500ML 500 ML IV ONE (20:15)
[2018-05-23] MEDS ORDERED: VITAMIN D250000 UNI1 ORAL (20:45)
[2018-05-23] MEDS ORDERED: LANTUS SOL100 UNIT/1 SUBQ (20:45)
[2018-05-23] MEDS ORDERED: GLIMEPIRIDE4 MG ORAL (20:47)
[2018-05-23] MEDS ORDERED: LOSARTAN-HCTZ1 EAC1 ORAL (20:47)
[2018-05-23] MEDS ORDERED: ATORVASTATIN CA80 MG ORAL (20:48)
[2018-05-23 21:19] VITALS: BP 131/81
[2018-05-23 21:20] VITALS: BP 131/81
== END 2018-05-23 21:21 | disposition short-term general hospital (02) ==
LOC: EMR 17:35
DX: E11.65 Type 2 diabetes mellitus with hyperglycemia (principal); N39.0 Urinary tract infection, site not specified; I10 Essential (primary) hypertension
CPT/HCPCS: 36415; 80053; 81001; 82009; 84443; 84484; 85025; 96361; 96365; 96375; 99285; J0696; J1815; J7040

== ENCOUNTER 2018-09-18 15:02 | Emergency (ER) | payer OTHER ==
[~2018-09-18] VITALS: Ht 152.4 cm; Wt 66.7 kg
[~2018-09-18 15:02] MED LIST changes: +ATORVASTATIN CA80 MG ORAL; +GLIMEPIRIDE4 MG ORAL; +LOSARTAN-HCTZ1 EAC1 ORAL; +VITAMIN D250000 UNI1 ORAL
[2018-09-18 15:43] VITALS: BP 154/99
[2018-09-18 15:44] VITALS: BP 154/99
[2018-09-18] MEDS ORDERED: Bacitracin Oint UD TOPIC ONE (15:45)
--- NOTE | 2018-09-18 16:41 | Emergency Room Report ---
History of Present Illness General Chief Complaint: Pain Present Illness HPI 58-year-old female presents to the emergency department complaining of pain, tenderness and abrasions to the right aaron/knee as well as the right elbow. Patient status post mechanical trip and fall while getting out of her friend's truck approximately 4 days ago. Patient denies hitting her head she denies loss of consciousness and she denies midline neck or back pain. Patient reports history of diabetes and she is worried that her wounds are infected as she is noticing some redness. Patient denies fevers or chills. Denies bleeding at this time she states she is up-to-date with her tetanus vaccination. Allergies: Coded Allergies: IBUPROFEN (Unverified Adverse Reaction, Mild, makes me feel jumpy, 04/14/14) Patient History Past Medical History: see triage record, DM Past Surgical History: none Pertinent Family History: none Now: No Immunizations: UTD Reviewed Nursing Documentation: PMH: Agreed; PSxH: Agreed Nursing Documentation-PMH Hx Cardiac Problems: No - hyperlipid Hx Hypertension: Yes Hx Pacemaker: No Hx Asthma: No Hx COPD: No Hx Diabetes: Yes Hx Cancer: No Hx Gastrointestinal Problems: No Hx Dialysis: No Hx Neurological Problems: No Hx Cerebrovascular Accident: No Hx Seizures: No Review of Systems All Other Systems: negative except mentioned in HPI Physical Exam Vital Signs Date Time Temp Pulse Resp B/P (MAP) Pulse Ox O2 Delivery O2 Flow Rate FiO2 09/18/18 15:08 98.4 100 18 154/99 97 Room Air Sp02 EP Interpretation: reviewed, normal General Appearance: no apparent distress, alert, GCS 15, non-toxic Head: normocephalic, atraumatic Eyes: bilateral eye normal inspection, bilateral eye PERRL ENT: hearing grossly normal, normal voice Neck: full range of motion Respiratory: chest non-tender, lungs clear, normal breath sounds, speaking full sentences Cardiovascular #1: regular rate, rhythm, no edema Gastrointestinal: normal bowel sounds, non tender, soft Rectal: deferred Genitourinary: normal inspection Musculoskeletal: back normal, gait/station normal, normal range of motion, tender - TTP to the lateral right elbow, and the anterior right knee, no increased laxity, FROM with pain. Neurologic: alert, oriented x3, responsive, motor strength/tone normal, sensory intact, speech normal, grossly normal Psychiatric: judgement/insight normal Skin: normal color, no rash, warm/dry, well hydrated, abrasions - right elbow and right anterior knee. some surrounding erythema, no warmth. No D/C, Crusting or bleeding. Medical Decision Making PA Attestation Dr. Trujillo is my supervising Physician whom patient management has been discussed with. Diagnostic Impression: Primary Impression: Abrasions of multiple sites with infection Additional Impression: Contusion Qualified Codes: S80.10XA - Contusion of unspecified lower leg, initial encounter ER Course 31 YO Male presents to the ED c/o needing a wound re-check for lacerations sustained on Sunday. pt. was seen here in the ED and steri-strips were placed. pt. reports they all have fallen off now. patient denies recurrence of bleeding he states he is now up-to-date with his tetanus vaccination. Patient denies wound discharge. He does report having some erythema about the lacerations but denies warmth. He denies fevers or chills. Denies pain at this time. Ddx considered but are not limited to Fracture, dislocation, contusion, Sprain/ Strain/Spasm, abrasion, laceration, septic joint just to name a few. Vital signs: are WNL, pt. is afebrile H&PE are most consistent with musculoskeletal injury will perform imaging to r/ o fractures/dislocations. ORDERS: - X-ray's declined by PT --- She states she is just worried about infection. ED INTERVENTIONS: - wound care and bacitracin is applied. -I do not identify an emergent condition at this time. With current presentation , pt. is stable for close outpatient follow up and conservative treatment. D/ w pt. to return promptly to ED with worsening or new symptoms.- Pt. verbalizes' understanding and agreement with proposed treatment plan. DISCHARGE: At this time pt. is stable for d/c to home. Will provide printed patient care instructions, and any necessary prescriptions. Care plan and follow up instructions have been discussed with the patient prior to discharge. Last Vital Signs Date Time Temp Pulse Resp B/P (MAP) Pulse Ox O2 Delivery O2 Flow Rate FiO2 09/18/18 15:44 98.4 80 18 154/99 97 Room Air Disposition: HOME, SELF-CARE Condition: Stable Scripts Bacitracin/Polymyxin B Sulfate (BACITRACIN-POLYMYXIN OINTMENT) 28.35 Gm Oint...g. 1 APPLIC TP BID, #28.3 GM Prov: Janina Sevilla 09/18/18 Cephalexin* (KEFLEX*) 500 Mg Capsule 500 MG ORAL EVERY 12 HOURS for 7 Days, #14 CAP 0 Refills Prov: Janina Sevilla 09/18/18 Patient Instructions: Abrasion, [id number] Additional Instructions: Take medications as directed. Follow up with a Primary Care Provider in 3-5 days, even if your symptoms have resolved. --Please review list of primary care clinics, if you do not already have a primary care provider Return sooner to ED if new symptoms occur, or current symptoms become worse. - Please note that this Emergency Department Report was dictated using [employer] technology software, occasionally this can lead to erroneous entry secondary to interpretation by the dictation equipment. Janina Sevilla Sep 18, 2018 16:41
[2018-09-18] MEDS ORDERED: CEPHALEXIN500 MG ORAL (16:42)
[2018-09-18] MEDS ORDERED: BACITRACIN-P28.35 GM TP (16:42)
== END 2018-09-18 15:45 | disposition home or self-care (01) ==
LOC: EMR 15:45
DX: S80.811A Abrasion, right lower leg, initial encounter (principal); S50.311A Abrasion of right elbow, initial encounter; S80.211A Abrasion, right knee, initial encounter; S80.11XA Contusion of right lower leg, initial encounter; W01.0XXA Fall on same level from slipping, tripping and stumbling without subsequent striking against object, initial encounter; Y92.89 Other specified places as the place of occurrence of the external cause; E11.9 Type 2 diabetes mellitus without complications; I10 Essential (primary) hypertension
CPT/HCPCS: 99281

== ENCOUNTER 2019-02-26 18:20 | Emergency (ER) | payer OTHER ==
[~2019-02-26] VITALS: Ht 149.9 cm; Wt 62.1 kg
[~2019-02-26 18:20] MED LIST changes: +BACITRACIN-P28.35 GM TP; +CEPHALEXIN500 MG ORAL
[2019-02-26 18:44] VITALS: BP 143/86
--- NOTE | 2019-02-26 18:55 | NUR ---
ED Nurse Note: pt walked in c/o headache and left leg swelling since last week due to a fall. ermd eval done awaiting orders.
--- NOTE | 2019-02-26 18:59 | Emergency Room Report ---
History of Present Illness General Chief Complaint: Headache Source: Patient, Medical Record Present Illness HPI 59-year-old female history of hypertension, diabetes presents with headache that started 1 week ago after a mechanical fall, patient states she was xr and CTed at [facility], which was negative patient presents with an intermittent headache that comes and goes, she did lose consciousness 1 week ago , she is not sure why she keeps having a headache, she denies any chest pain, shortness of breath, she presents for evaluation Allergies: Coded Allergies: IBUPROFEN (Unverified Adverse Reaction, Mild, makes me feel jumpy, 04/14/14) Patient History Past Medical History: see triage record Immunizations: UTD Reviewed Nursing Documentation: PMH: Agreed; PSxH: Agreed Nursing Documentation-PMH Past Medical History: No History, Except For Hx Cardiac Problems: No Hx Hypertension: Yes Hx Pacemaker: No Hx Asthma: No Hx COPD: No Hx Diabetes: Yes Hx Cancer: No Hx Gastrointestinal Problems: No Hx Dialysis: No Hx Neurological Problems: No Hx Cerebrovascular Accident: No Hx Seizures: No Review of Systems Constitutional: Denies: chills, fever Eye: Denies: blurred vision, double vision ENT: Denies: throat pain, nasal discharge Respiratory: Denies: cough, shortness of breath Cardiovascular: Denies: chest pain, palpitations Gastrointestinal: Denies: abdominal pain, diarrhea, nausea, vomiting Genitourinary: Denies: dysuria, pain Musculoskeletal: Reports: muscle pain; Denies: back pain Skin: Denies: rash, lesions Neurological: Reports: headache; Denies: focal weakness Hematologic/Lymphatic: Denies: easy bleeding, easy bruising All Other Systems: negative except mentioned in HPI Physical Exam Vital Signs Date Time Temp Pulse Resp B/P (MAP) Pulse Ox O2 Delivery O2 Flow Rate FiO2 02/26/19 18:29 98.1 106 18 143/86 (105) 99 Room Air Sp02 EP Interpretation: reviewed, normal General Appearance: well appearing, no apparent distress, alert Head: normocephalic, other - Left abrasion left forehead Eyes: bilateral eye PERRL, bilateral eye EOMI ENT: uvula midline, moist mucus membranes Neck: supple, thyroid normal, supple/symm/no masses Respiratory: lungs clear, no respiratory distress, no retraction, no accessory muscle use Cardiovascular #1: normal peripheral pulses, regular rate, rhythm, no edema, no gallop, no murmur Gastrointestinal: non tender, soft, no guarding, no rebound Musculoskeletal: other - Mild swelling around left knee, valgus varus negative , anterior posterior drawer negative, pulses intact Neurologic: alert, oriented x3, normal gait Psychiatric: mood/affect normal Skin: no rash, warm/dry Medical Decision Making Diagnostic Impression: Primary Impression: Closed head injury Additional Impressions: Concussion Left knee pain ER Course Patient likely with concussion, will obtain CT brain to rule out any developing pathology, repeat x-rays of the chest, will evaluate left knee with a CT, given her history of osteoporosis she may have an occult fracture. Imaging thus far negative, reassurance to the patient. Dispo home with return precautions Chest X-Ray Diagnostic Results Chest X-Ray Diagnostic Results : Chest X-Ray Ordered: Yes # of Views/Limited/Complete: 2 View Indication: Other - Chest wall pain EP Interpretation: Yes Interpretation: no consolidation, no effusion, no pneumothorax, no acute cardiopulmonary disease, other Impression: No acute disease Electronically Signed by: Ruben Shepherd MD CT/MRI/US Diagnostic Results CT/MRI/US Diagnostic Results #1: Imaging Test Ordered: CT brain Impression Findings: No evidence of acute transcortical cerebral infarction or intracranial hemorrhage. No abnormal mass effect or midline shift. No abnormal extra-axial collections. Chronic dense bilateral basal ganglion calcifications. No skull fracture identified. Imaged sinuses are clear. IMPRESSION: No evidence of acute intracranial abnormality. CT/MRI/US Diagnostic Results #2: Imaging Test Ordered: CT left Knee Impression no acute fx dislocation Last Vital Signs Date Time Temp Pulse Resp B/P (MAP) Pulse Ox O2 Delivery O2 Flow Rate FiO2 02/26/19 18:44 98.1 18 143/86 99 Room Air 02/26/19 18:29 106 Disposition: HOME, SELF-CARE Condition: Improved Referrals: [facility] Patient Instructions: Concussion, Adult, [id number], Head Injury, Adult, KNEE PAIN, Uncertain Cause Additional Instructions: The patient was provided with discharge instructions, notified to follow-up with a primary care doctor and or specialist in the next 24-48 hours, and to return to the ED if they have worsening of their symptoms. Please note that this report is being documented using [employer] technology. This can lead to erroneous entry secondary to incorrect interpretation by the dictating instrument. Ruben Shepherd M.D. Feb 26, 2019 18:59
--- NOTE | 2019-02-26 19:12 | NUR ---
ED Nurse Note: Pt endorsed by TERI Snowden
--- NOTE | 2019-02-26 19:15 | NUR ---
ED Nurse Note: Pt to CT
--- NOTE | 2019-02-26 19:51 | NUR ---
ED Nurse Note: Pt back from CT
[2019-02-26 20:56] VITALS: BP 135/78
[2019-02-26] MEDS ORDERED: ROBAXIN-750750 MG PO (21:15)
[2019-02-26 21:20] VITALS: BP 135/78
--- NOTE | 2019-02-26 21:20 | NUR ---
ER DISCHARGE NOTE: Patient is cleared to be discharged per ERMD, pt is aox4, on room air, with stable vital signs. pt was given dc and prescription instructions, pt was able to verbalize understanding, pt id band removed. pt is able to ambulate with steady gait. pt took all belongings.
--- NOTE | 2019-02-27 10:00 | Diagnostic Imaging Report ---
Indication: knee pain/ Trauma Technique: Continuous helical imaging of the left knee was performed in the transaxial plane. Coronal 2-D reformatted images were also generated. Study obtained in a Siemens Sensation [address] total DLP: 366 mGycm CTD/vol: 0.15, 0.15, 15.26 mGy Comparison: None Findings: There is no evidence of an acute fracture or significant malalignment identified on this examination. Trace joint effusion identified. There is subcutaneous edema and thickening of the skin in the anterior part of the knee. Impression: No acute fracture or malalignment. Anterior soft tissue swelling. Trace joint effusion The CT scanner at [facility] is accredited by the [employer] and the scans are performed using dose optimization techniques as appropriate to a performed exam including Automatic Exposure control.
--- NOTE | 2019-02-27 10:06 | Diagnostic Imaging Report ---
Indication: Headache Technique: Contiguous 5 mm thick transaxial imaging of the head obtained in a Siemens Sensation [address] scanner. Soft tissue and bone windows generated. Automatic Exposure Control was utilized. Total Dose length Product (DLP): 1362.[address] Dose Index Volume (CTDIvol): 70.38 mGy Comparison: 05/18/2016 Findings: The size and configuration of the cortical sulci, basal cisterns, and ventricles are within normal limits for age. There is no mass effect, midline shift, or edema identified. There is no evidence of acute hemorrhage or abnormal intra-axial or extra-axial fluid collections. There is a soft tissue swelling over the left frontal region. There is no acute fracture. Impression: No mass effect, edema or acute bleed. Left scalp contusion The CT scanner at [facility] is accredited by the [employer] and the scans are performed using dose optimization techniques as appropriate to a performed exam including Automatic Exposure control.
--- NOTE | 2019-02-27 13:02 | Diagnostic Imaging Report ---
Indication: Chest pain Comparison: 04/10/2018 2 views of the chest obtained. Findings: Cardiomediastinal silhouette and pulmonary vascularity are within normal limits for age. The diaphragmatic contour is smooth and costophrenic angles are sharp. No pleural effusions are identified. The bones are unremarkable. Impression: No acute disease
== END 2019-02-26 21:20 | disposition home or self-care (01) ==
LOC: EMR 18:55
DX: S09.90XA Unspecified injury of head, initial encounter (principal); M25.562 Pain in left knee; S06.0X9A Concussion with loss of consciousness of unspecified duration, initial encounter; Z88.6 Allergy status to analgesic agent; I10 Essential (primary) hypertension; E11.9 Type 2 diabetes mellitus without complications; W19.XXXA Unspecified fall, initial encounter; Y92.9 Unspecified place or not applicable
CPT/HCPCS: 70450; 71046; 99284